=== PATIENT | female | born 1955 | race Caucasian/White ===

== ENCOUNTER → 2021-11-09 | Outpatient (CLI) | payer MEDICARE ==
[~2021-11-09] MED LIST: AMARYL2 MG PO; CYMBALTA60 MG PO; EXFORGE 10 MG-31 TA1 PO; FLEXERIL10 MG PO; HYDROCODONE BIT1 T11 PO; KLOR-CON M2020 MEQ PO; LYRICA75 MG PO; PREVACID30 M1 PO; SYNTHROID0.075 MG PO; TRAMADOL50 MG PO; ZOLPIDEM10 M1 PO
== END | disposition home or self-care (01) ==
LOC: RESCLI 01:42
PROVIDERS: ATTEND Internal Medicine
DX: E11.9 Type 2 diabetes mellitus without complications (principal); E03.9 Hypothyroidism, unspecified; I10 Essential (primary) hypertension; K21.9 Gastro-esophageal reflux disease without esophagitis; E78.2 Mixed hyperlipidemia; G47.00 Insomnia, unspecified; Z79.899 Other long term (current) drug therapy; Z88.8 Allergy status to other drugs, medicaments and biological substances

== ENCOUNTER → 2021-12-04 | Outpatient (CLI) | payer MEDICARE | END | disposition home or self-care (01) | LOC: RAD 14:24 | PROVIDERS: ATTEND Nurse Practitioner Family | DX: R91.8 Other nonspecific abnormal finding of lung field (principal); N28.89 Other specified disorders of kidney and ureter; C64.1 Malignant neoplasm of right kidney, except renal pelvis; Z85.3 Personal history of malignant neoplasm of breast; R05.9 Cough, unspecified; R06.02 Shortness of breath ==